=== PATIENT | male | born 1965 | race Caucasian/White ===

== ENCOUNTER 2020-03-25 07:15 | Day surgery (SDC) | payer MEDICARE ==
[~2020-03-25] VITALS: Ht 188 cm; Wt 83.8 kg
[2020-03-25] MEDS ORDERED: SODIUM CHLORIDE 0.9% 1,000 ML IV SCH (08:00)
[2020-03-25] MEDS ORDERED: CEFAZOLIN PMX 1GM/50ML 50 ML IV ONE (08:00)
[2020-03-25] MEDS ORDERED: PLEASE ENTER HEIGHT AND WEIGHT AND ALLERGIES MC SCH (08:01)
[2020-03-25 08:16] VITALS: BP 160/78
[2020-03-25] MEDS ORDERED: CEFAZOLIN PMX 1GM/50ML 50 ML ONE (08:26)
[2020-03-25] MEDS ORDERED: LIDOCAINE 1%, 20ML ONE (13:06)
[2020-03-25] MEDS ORDERED: LIDOCAINE 1%, 10ML ONE (13:06)
[2020-03-25] MEDS ORDERED: MIDAZOLAM 1 MG/ML, 5ML ONE (13:13)
[2020-03-25] MEDS ORDERED: FENTANYL PF 100 MCG/2ML ONE ×2 (13:13)
[2020-03-25] MEDS ORDERED: NALOXONE 1 MG/ML, 2ML ONE (13:14)
[2020-03-25] MEDS ORDERED: FLUMAZENIL 0.1 MG/1 ML, 5ML ONE (13:14)
== END 2020-03-25 14:55 | disposition home or self-care (01) ==
LOC: OUT 07:15
PROVIDERS: ATTEND Internal Medicine Hematology & Oncology
DX: C82.05 Follicular lymphoma grade I, lymph nodes of inguinal region and lower limb (principal); K21.9 Gastro-esophageal reflux disease without esophagitis; F17.210 Nicotine dependence, cigarettes, uncomplicated; Z98.890 Other specified postprocedural states
CPT/HCPCS: 36561; 76937; 77001; 99156; 99157; C1788; J0690; J1642; J2250; J3010; J7030; J2310